=== PATIENT | female | born 1950 | race Caucasian/White ===

== ENCOUNTER 2024-07-25 18:58 | Inpatient (IN) | payer MEDICARE ==
[~2024-07-25] VITALS: Ht 165.1 cm; Wt 53.5 kg
[2024-07-25] MEDS ORDERED: ASPIRIN 325 MG TABLET ONE (20:05)
[2024-07-25] MEDS ORDERED: ASPIRIN 81 MG TAB.CHEW ONE (20:13)
[2024-07-25] MEDS: ASPIRIN 325 MG TABLET PO ONE (20:17)
[2024-07-25 20:18] LABS: BASOPHILS % (AUTO) 0.5 % (0.0-2.0); EOSINOPHILS % (AUTO) 0.5 % (0.0-6.0); HEMATOCRIT 44 % (33-45); HEMOGLOBIN 14.7 g/dL (11.5-14.8); LYMPHOCYTES # (AUTO) 1.4 K/uL (0.8-4.8); MEAN CORPUSCULAR HEMOGLOBIN 30 PG (26.0-33.0); MEAN CORPUSCULAR HGB CONC 33 g/dl (31.0-36.0); MEAN CORPUSCULAR VOLUME 90 fL (82-100); MONOCYTES # (AUTO) 0.6 K/uL (0.1-1.30); MONOCYTES % (AUTO) 6.8 % (2.0-12.0); NEUTROPHILS # (AUTO) 7.1 K/uL (1.8-8.9); NEUTROPHILS % (AUTO) 77.2 % (43.0-81.0); PLATELET COUNT (AUTO) 215 K/uL (150-450); RED BLOOD CELL COUNT(AUTO) 4.91 MIL/uL (4.0-5.2); WHITE BLOOD COUNT (AUTO) 9.2 K/uL (4.3-11.0)
[2024-07-25] MEDS ORDERED: QUET300T2 PO (20:18)
[2024-07-25] MEDS ORDERED: APIX2.5T PO (20:20)
[2024-07-25] MEDS ORDERED: LIOT25TA13 PO (20:20)
[2024-07-25] MEDS ORDERED: ROSU10TA2 PO (20:20)
[2024-07-25] MEDS ORDERED: FURO-144 PO (20:20)
[2024-07-25] MEDS ORDERED: AMIT100T2 PO (20:20)
[2024-07-25 20:23] LABS: CALCIUM, SERUM 9.6 mg/dL (8.5-10.1); CARBON DIOXIDE 28 mmol/L (21-32); CHLORIDE 105 mmol/L (98-107); CREATININE 0.9 mg/dL (0.6-1.3); GLUCOSE 105 mg/dL (74-106); POTASSIUM 4.2 mmol/L (3.5-5.1); SODIUM SERUM 141 mmol/L (136-145); UREA NITROGEN, BLOOD 16 mg/dL (7-18)
[2024-07-25 20:40] LABS: ALANINE AMINOTRANSFERASE 15 U/L (12-78); ALBUMIN 3.6 g/dL (3.4-5.0); ALKALINE PHOSPHATASE 109 U/L (46-116); ASPARTATE AMINOTRANSFERASE 20 U/L (15-37); BILIRUBIN,DIRECT 0.2 mg/dL (0.0-0.2); BILIRUBIN,TOTAL 0.6 mg/dL (0.2-1.0); NT-PRO BNP 189 pg/mL (0-125); TOTAL PROTEIN, SERUM 6.5 g/dL (6.4-8.2)
[2024-07-25 21:30] VITALS: BP 133/70; TEMP 98.1; O2SAT 96
[2024-07-25] MEDS ORDERED: QUETIAPINE FUMARATE 100 MG TABLET PO SCH (21:30)
[2024-07-25] MEDS ORDERED: Z GUARD REMEDY 4 OZ OINT TP PRN (21:30)
[2024-07-25] MEDS ORDERED: MAGNESIUM HYDROXIDE 30 ML UDC PO PRN (21:30)
[2024-07-25] MEDS ORDERED: HYDROCODONE/APAP 5/325MG TABLET PO PRN (21:30)
[2024-07-25] MEDS ORDERED: NITROGLYCERIN 0.4 MG/TAB BOTTLE SL PRN (21:30)
[2024-07-25] MEDS ORDERED: ONDANSETRON HCL/PF 4 MG/2 ML VIAL IVP PRN (21:30)
[2024-07-25] MEDS ORDERED: MAG HYDROX/AL HYDROX/SIMETH 30 ML UDC PO PRN (21:30)
[2024-07-25] MEDS ORDERED: TEMAZEPAM 15 MG CAPSULE PO PRN (21:30)
[2024-07-25] MEDS: AMITRIPTYLINE HCL 25 MG TABLET PO SCH (22:00)
[2024-07-26] VITALS: BP 139/66; TEMP 98.7; O2SAT 99
[2024-07-26 04:00] VITALS: TEMP 98.4; O2SAT 95
[2024-07-26 06:27] LABS: BASOPHILS % (AUTO) 0.4 % (0.0-2.0); EOSINOPHILS # (AUTO) 0.1 K/uL (0.0-0.7); EOSINOPHILS % (AUTO) 1.2 % (0.0-6.0); HEMATOCRIT 43 % (33-45); HEMOGLOBIN 14.1 g/dL (11.5-14.8); LYMPHOCYTES # (AUTO) 1.9 K/uL (0.8-4.8); LYMPHOCYTES % (AUTO) 22.7 % (20.0-44.0); MEAN CORPUSCULAR HEMOGLOBIN 29 PG (26.0-33.0); MEAN CORPUSCULAR HGB CONC 33 g/dl (31.0-36.0); MEAN CORPUSCULAR VOLUME 89 fL (82-100); MONOCYTES # (AUTO) 0.8 K/uL (0.1-1.30); NEUTROPHILS # (AUTO) 5.4 K/uL (1.8-8.9); NEUTROPHILS % (AUTO) 65.7 % (43.0-81.0); PLATELET COUNT (AUTO) 197 K/uL (150-450); RED BLOOD CELL COUNT(AUTO) 4.84 MIL/uL (4.0-5.2); RED CELL DISTRIBUTION WIDTH 15.7 % (11.5-15.0); WHITE BLOOD COUNT (AUTO) 8.3 K/uL (4.3-11.0)
[2024-07-26 07:03] LABS: CALCIUM, SERUM 8.9 mg/dL (8.5-10.1); CARBON DIOXIDE 30 mmol/L (21-32); CHLORIDE 105 mmol/L (98-107); CREATININE 0.8 mg/dL (0.6-1.3); GLUCOSE 88 mg/dL (74-106); MAGNESIUM 1.9 mg/dL (1.8-2.4); PHOSPHORUS 3.1 mg/dL (2.5-4.9); POTASSIUM 4.3 mmol/L (3.5-5.1); SODIUM SERUM 148 mmol/L (136-145); UREA NITROGEN, BLOOD 13 mg/dL (7-18)
[2024-07-26 07:26] LABS: CHOLESTEROL 108 mg/dL (<200); HDL CHOLESTEROL 60 mg/dL (40-60); LDL 36 mg/dL (0-99); TRIGLYCERIDES 84 mg/dL (30-150)
[2024-07-26 08:00] VITALS: BP 103/65; TEMP 99.1; O2SAT 95
[2024-07-26] MEDS: FUROSEMIDE 40 MG TABLET PO SCH (08:11)
[2024-07-26] MEDS: LIOTHYRONINE SODIUM (25 MCG) 25 MCG TABLET PO SCH (08:11)
[2024-07-26] MEDS: PANTOPRAZOLE 40 MG TABLET.DR PO SCH (08:11)
[2024-07-26] MEDS: ASPIRIN 81 MG TAB.CHEW PO SCH (08:11)
[2024-07-26] MEDS: APIXABAN 2.5 MG TABLET PO SCH (08:12)
[2024-07-26 09:24] LABS: THYROID STIMULATING HORMONE 1.08 uIU/mL (0.358-3.74)
[2024-07-26 12:00] VITALS: BP 108/64; TEMP 98.6; O2SAT 95
[2024-07-26 16:00] VITALS: BP 115/71; TEMP 98.4; O2SAT 99
[2024-07-26 20:00] VITALS: BP 113/57; TEMP 98.1; O2SAT 95
[2024-07-26] MEDS: ATORVASTATIN 10 MG TABLET PO SCH (21:14)
[2024-07-27] VITALS: BP 146/63; TEMP 98.1; O2SAT 95
[2024-07-27 04:00] VITALS: BP 115/61; TEMP 98.1; O2SAT 95
[2024-07-27] MEDS ORDERED: SILVER NITRATE APPLICATOR 1 EA BOX ONE (05:09)
[2024-07-27] MEDS ORDERED: LIDOCAINE 1%-EPI 1:100,000 20 ML VIAL ONE (05:10)
[2024-07-27] MEDS: ACETAMINOPHEN 325 MG TABLET PO PRN (06:22)
[2024-07-27 08:00] VITALS: BP 114/59; TEMP 98.1; O2SAT 96
[2024-07-27] MEDS ORDERED: SILVER NITRATE APPLICATOR 1 EA BOX TP ONE (08:00)
[2024-07-27] MEDS ORDERED: LIDOCAINE 2%-EPI 1:100,000 30 ML VIAL TP ONE (08:00)
[2024-07-27 11:44] LABS: BASOPHILS # (AUTO) 0.1 K/uL (0.0-0.2); BASOPHILS % (AUTO) 0.7 % (0.0-2.0); EOSINOPHILS # (AUTO) 0.1 K/uL (0.0-0.7); EOSINOPHILS % (AUTO) 0.8 % (0.0-6.0); HEMATOCRIT 48 % (33-45); HEMOGLOBIN 15.6 g/dL (11.5-14.8); LYMPHOCYTES # (AUTO) 2.2 K/uL (0.8-4.8); LYMPHOCYTES % (AUTO) 19.6 % (20.0-44.0); MEAN CORPUSCULAR HEMOGLOBIN 29 PG (26.0-33.0); MEAN CORPUSCULAR HGB CONC 33 g/dl (31.0-36.0); MEAN CORPUSCULAR VOLUME 89 fL (82-100); MONOCYTES # (AUTO) 1.1 K/uL (0.1-1.30); MONOCYTES % (AUTO) 9.6 % (2.0-12.0); NEUTROPHILS # (AUTO) 7.9 K/uL (1.8-8.9); NEUTROPHILS % (AUTO) 69.3 % (43.0-81.0); PLATELET COUNT (AUTO) 238 K/uL (150-450); RED BLOOD CELL COUNT(AUTO) 5.36 MIL/uL (4.0-5.2); RED CELL DISTRIBUTION WIDTH 15.7 % (11.5-15.0); WHITE BLOOD COUNT (AUTO) 11.4 K/uL (4.3-11.0)
[2024-07-27 11:54] LABS: CALCIUM, SERUM 9.5 mg/dL (8.5-10.1); CREATININE 1.1 mg/dL (0.6-1.3); POTASSIUM 3.8 mmol/L (3.5-5.1)
[2024-07-27 12:00] VITALS: BP 94/78; TEMP 97.2; O2SAT 95
[2024-07-27 15:25] LABS: ABG OXYGEN SATURATION 94.1 % (94.0-98.0); ABG PCO2 55.4 mmHg (32.0-45.0); ABG PH 7.389 (7.350-7.450); ABG PO2 73.6 mmHg (83.0-108.0); COHb 1.4 % (0.5-1.5); MetHb 0.2 % (0.0-1.5); O2Hb 92.6 % (94.0-97.0); SITE, ABG LEFT RADIAL
[2024-07-27 16:00] VITALS: BP 115/65; TEMP 98.2; O2SAT 90; O2SAT 95
[2024-07-27 20:57] VITALS: BP 121/57; TEMP 98.1; O2SAT 93
[2024-07-28] VITALS (8 sets, daily range): BP systolic 105–129; BP diastolic 52–74; TEMP 97.9–98.4; O2SAT 92–97
[2024-07-28 06:37] LABS: BASOPHILS % (AUTO) 0.3 % (0.0-2.0); EOSINOPHILS # (AUTO) 0.1 K/uL (0.0-0.7); EOSINOPHILS % (AUTO) 1.6 % (0.0-6.0); HEMATOCRIT 44 % (33-45); HEMOGLOBIN 14.1 g/dL (11.5-14.8); LYMPHOCYTES # (AUTO) 1.7 K/uL (0.8-4.8); LYMPHOCYTES % (AUTO) 19.1 % (20.0-44.0); MEAN CORPUSCULAR HEMOGLOBIN 29 PG (26.0-33.0); MEAN CORPUSCULAR HGB CONC 32 g/dl (31.0-36.0); MEAN CORPUSCULAR VOLUME 90 fL (82-100); MONOCYTES % (AUTO) 11.1 % (2.0-12.0); NEUTROPHILS # (AUTO) 6.1 K/uL (1.8-8.9); NEUTROPHILS % (AUTO) 67.9 % (43.0-81.0); PLATELET COUNT (AUTO) 201 K/uL (150-450); RED BLOOD CELL COUNT(AUTO) 4.92 MIL/uL (4.0-5.2); RED CELL DISTRIBUTION WIDTH 15.4 % (11.5-15.0)
[2024-07-28 07:22] LABS: CALCIUM, SERUM 9.4 mg/dL (8.5-10.1); CARBON DIOXIDE 37 mmol/L (21-32); CHLORIDE 103 mmol/L (98-107); CREATININE 0.9 mg/dL (0.6-1.3); GLUCOSE 109 mg/dL (74-106); POTASSIUM 3.8 mmol/L (3.5-5.1); SODIUM SERUM 141 mmol/L (136-145); UREA NITROGEN, BLOOD 17 mg/dL (7-18)
[2024-07-28 08:09] LABS: CARCINOEMBRYONIC ANTIGEN (CEA) 2.8 ng/mL (0.0-4.7)
[2024-07-28] MEDS: ENOXAPARIN SODIUM 60 MG/0.6 ML DISP.SYRIN SQ SCH (10:21)
[2024-07-28] MEDS ORDERED: IOHEXOL-300 100 ML VIAL IV ONE (10:33)
[2024-07-28] MEDS ORDERED: IV NS 0.9% 250 ML IV ONE (10:33)
[2024-07-28] MEDS ORDERED: CT SWABBABLE VALVE TRANS SET 1 EA INFUS.SET MC ONE (10:34)
[2024-07-28] MEDS: ALBUTEROL FS 2.5 MG/3 ML VIAL.NEB NEB PRN (22:50)
[2024-07-28] MEDS: IPRATROPIUM NEB FS 0.5 MG/2.5 ML AMPUL.NEB NEB PRN (22:50)
[2024-07-29] VITALS (9 sets, daily range): BP systolic 96–128; BP diastolic 61–67; TEMP 97.3–98.1; O2SAT 87–100
[2024-07-29 07:09] LABS: BASOPHILS % (AUTO) 0.5 % (0.0-2.0); EOSINOPHILS # (AUTO) 0.1 K/uL (0.0-0.7); EOSINOPHILS % (AUTO) 1.2 % (0.0-6.0); HEMATOCRIT 44 % (33-45); HEMOGLOBIN 14.4 g/dL (11.5-14.8); LYMPHOCYTES # (AUTO) 1.5 K/uL (0.8-4.8); LYMPHOCYTES % (AUTO) 20.2 % (20.0-44.0); MEAN CORPUSCULAR HEMOGLOBIN 29 PG (26.0-33.0); MEAN CORPUSCULAR HGB CONC 33 g/dl (31.0-36.0); MEAN CORPUSCULAR VOLUME 89 fL (82-100); MONOCYTES # (AUTO) 0.9 K/uL (0.1-1.30); MONOCYTES % (AUTO) 11.4 % (2.0-12.0); NEUTROPHILS # (AUTO) 5.1 K/uL (1.8-8.9); NEUTROPHILS % (AUTO) 66.7 % (43.0-81.0); PLATELET COUNT (AUTO) 235 K/uL (150-450); RED BLOOD CELL COUNT(AUTO) 4.99 MIL/uL (4.0-5.2); RED CELL DISTRIBUTION WIDTH 15.1 % (11.5-15.0); WHITE BLOOD COUNT (AUTO) 7.7 K/uL (4.3-11.0)
[2024-07-29 07:30] LABS: CARBON DIOXIDE 37 mmol/L (21-32); CHLORIDE 105 mmol/L (98-107); CREATININE 0.8 mg/dL (0.6-1.3); GLUCOSE 111 mg/dL (74-106); PHOSPHORUS 3.2 mg/dL (2.5-4.9); POTASSIUM 4.2 mmol/L (3.5-5.1); SODIUM SERUM 143 mmol/L (136-145); UREA NITROGEN, BLOOD 18 mg/dL (7-18)
[2024-07-30 04:00] VITALS: BP 104/66; TEMP 97.3; O2SAT 97
[2024-07-30 06:01] LABS: BASOPHILS % (AUTO) 0.5 % (0.0-2.0); EOSINOPHILS # (AUTO) 0.1 K/uL (0.0-0.7); EOSINOPHILS % (AUTO) 1.4 % (0.0-6.0); HEMATOCRIT 43 % (33-45); HEMOGLOBIN 13.9 g/dL (11.5-14.8); LYMPHOCYTES # (AUTO) 1.7 K/uL (0.8-4.8); LYMPHOCYTES % (AUTO) 24.7 % (20.0-44.0); MEAN CORPUSCULAR HEMOGLOBIN 29 PG (26.0-33.0); MEAN CORPUSCULAR HGB CONC 33 g/dl (31.0-36.0); MEAN CORPUSCULAR VOLUME 89 fL (82-100); MONOCYTES # (AUTO) 0.8 K/uL (0.1-1.30); MONOCYTES % (AUTO) 11.9 % (2.0-12.0); NEUTROPHILS # (AUTO) 4.1 K/uL (1.8-8.9); NEUTROPHILS % (AUTO) 61.5 % (43.0-81.0); PLATELET COUNT (AUTO) 229 K/uL (150-450); RED BLOOD CELL COUNT(AUTO) 4.77 MIL/uL (4.0-5.2); RED CELL DISTRIBUTION WIDTH 15.5 % (11.5-15.0); WHITE BLOOD COUNT (AUTO) 6.7 K/uL (4.3-11.0)
[2024-07-30 12:00] VITALS: BP 104/66; TEMP 97.3; O2SAT 97
[2024-07-30 19:46] VITALS: O2SAT 89
[2024-07-30 19:56] VITALS: O2SAT 99
[2024-07-30 20:00] VITALS: BP 120/64; TEMP 97.5; O2SAT 100
[2024-07-30] MEDS ORDERED: AMITRIPTYLINE HCL 25 MG TABLET ONE (22:14)
[2024-07-31 04:00] VITALS: BP 119/52; TEMP 97.8; O2SAT 93
[2024-07-31 06:18] LABS: BASOPHILS % (AUTO) 0.6 % (0.0-2.0); EOSINOPHILS # (AUTO) 0.1 K/uL (0.0-0.7); EOSINOPHILS % (AUTO) 1.8 % (0.0-6.0); HEMATOCRIT 42 % (33-45); HEMOGLOBIN 13.6 g/dL (11.5-14.8); LYMPHOCYTES # (AUTO) 1.6 K/uL (0.8-4.8); LYMPHOCYTES % (AUTO) 23.8 % (20.0-44.0); MEAN CORPUSCULAR HEMOGLOBIN 29 PG (26.0-33.0); MEAN CORPUSCULAR HGB CONC 32 g/dl (31.0-36.0); MEAN CORPUSCULAR VOLUME 89 fL (82-100); MONOCYTES # (AUTO) 0.8 K/uL (0.1-1.30); MONOCYTES % (AUTO) 12.4 % (2.0-12.0); NEUTROPHILS # (AUTO) 4.1 K/uL (1.8-8.9); NEUTROPHILS % (AUTO) 61.4 % (43.0-81.0); PLATELET COUNT (AUTO) 220 K/uL (150-450); RED BLOOD CELL COUNT(AUTO) 4.73 MIL/uL (4.0-5.2); RED CELL DISTRIBUTION WIDTH 15.2 % (11.5-15.0); WHITE BLOOD COUNT (AUTO) 6.6 K/uL (4.3-11.0)
[2024-07-31 06:23] LABS: D-DIMER 0.26 mg/L(FEU (0.17-0.50); INR 0.97 (0.91-1.10); PARTIAL THROMBOPLASTIN TIME 28.6 SEC (24.3-34.3); PROTHROMBIN TIME 10.3 SECS (9.2-11.1)
[2024-07-31 12:06] VITALS: BP 118/64; TEMP 97.5; O2SAT 100
[2024-07-31 15:10] LABS: COCCIDIOIDES Abs, IgG,EIA 0.7 EIA Units (.)
[2024-07-31] MEDS ORDERED: PANT40TA49 PO (15:24)
== END 2024-07-31 18:15 | disposition home health service (06) | DRG 181 ==
LOC: ER 19:04 → TELE1 20:15 → MEDSG1 07-27 11:26
PROVIDERS: ADMIT Nurse Practitioner Acute Care; ATTEND Nurse Practitioner Acute Care
PROC: 0HBBXZX Excision of Right Upper Arm Skin, External Approach, Diagnostic (ICD-10-PCS; principal; 2024-07-28)
DX: D49.1 Neoplasm of unspecified behavior of respiratory system (principal); E44.0 Moderate protein-calorie malnutrition; Z68.1 Body mass index [BMI] 19.9 or less, adult; R91.8 Other nonspecific abnormal finding of lung field; K44.9 Diaphragmatic hernia without obstruction or gangrene; E78.5 Hyperlipidemia, unspecified; I48.0 Paroxysmal atrial fibrillation; E03.9 Hypothyroidism, unspecified; B35.1 Tinea unguium; K22.89 Other specified disease of esophagus; F32.A Depression, unspecified; I11.0 Hypertensive heart disease with heart failure; Z79.01 Long term (current) use of anticoagulants; J44.9 Chronic obstructive pulmonary disease, unspecified; L84 Corns and callosities; R13.10 Dysphagia, unspecified; K59.00 Constipation, unspecified; Z79.899 Other long term (current) drug therapy; M62.50 Muscle wasting and atrophy, not elsewhere classified, unspecified site; S41.001A Unspecified open wound of right shoulder, initial encounter; X58.XXXA Exposure to other specified factors, initial encounter; Y93.9 Activity, unspecified; Y92.009 Unspecified place in unspecified non-institutional (private) residence as the place of occurrence of the external cause; I50.9 Heart failure, unspecified; F17.210 Nicotine dependence, cigarettes, uncomplicated; I89.0 Lymphedema, not elsewhere classified; R07.89 Other chest pain; L98.8 Other specified disorders of the skin and subcutaneous tissue; J43.9 Emphysema, unspecified
CPT/HCPCS: 36415; 36600; 71045-TC; 71250-TC; 71260-TC; 80048-TC; 80061-TC; 80076-TC; 82164; 82378; 82803-TC; 83615-TC; 83735-TC; 83880; 84100-TC; 84439-TC; 84443-TC; 84484-TC; 85025-TC; 85396; 86480; 93307-TC; 93970-TC; 94760-TC; 94799-TC; 97110-TC; 97116-TC; 97530-TC; A6253; A6403; G0378; J1650; J3490; J7050; Q9967